=== PATIENT | female | born 1950 | race Two or more races ===

== ENCOUNTER 2024-01-12 07:03 | Day surgery (SDC) | payer OTHER ==
[~2024-01-12] VITALS: Ht 165.1 cm; Wt 81.6 kg
[~2024-01-12 07:03] MED LIST: DIALYVITE TABL1 EACH PO; GRALISE600 MG PO; NAMENDA10 MG PO; PLAVIX75 MG PO; PROBIOTIC250 MG PO
[2024-01-12] MEDS ORDERED: BUPIVACAINE HCL/PF 0.5% 30ML ML ONE (10:05)
[2024-01-12] MEDS ORDERED: HEMOSTATIC MATRIX 1 KIT KIT TOP ONE ×2 (10:05→11:00)
[2024-01-12] MEDS ORDERED: POVIDONE-IODINE 118 ML BOTT TOP ONE ×2 (10:05→11:00)
[2024-01-12] MEDS ORDERED: LIDOCAINE HCL/EPINEPHRINE 10MG/ML 1% 50ML IJ ONE (10:07)
[2024-01-12] MEDS ORDERED: DIBUCAINE 15 GM OINT..GM. TUBE ONE (10:07)
[2024-01-12] MEDS ORDERED: ERTAPENEM SODIUM 1,000 MG VIAL ONE (10:07)
[2024-01-12] MEDS ORDERED: LIDOCAINE HCL/EPINEPHRINE 50 ML VIAL IJ ONE (11:00)
[2024-01-12] MEDS ORDERED: BUPIVACAINE HCL 30 ML VIAL IJ ONE (11:00)
[2024-01-12] MEDS ORDERED: ERTAPENEM SODIUM 1,000 MG VIAL IV ONE (11:00)
[2024-01-12] MEDS ORDERED: DIBUCAINE 15 GM OINT..GM. TUBE RECTAL ONE (11:00)
[2024-01-12] MEDS ORDERED: TAMSULOSIN HCL 0.4 MG CAP PO ONE ×2 (11:30→12:58)
[2024-01-12] MEDS ORDERED: OXYC1TAB9 PO (11:35)
== END 2024-01-12 14:15 | disposition home or self-care (01) ==
LOC: CIR.AMB 07:03 → EDSTATUS 11:15 → SURH 11:15 → CIR.AMB 14:15
PROVIDERS: ATTEND Surgery
DX: D01.3 Carcinoma in situ of anus and anal canal (principal); K60.3 Anal fistula; K64.4 Residual hemorrhoidal skin tags; Z91.013 Allergy to seafood; Z88.6 Allergy status to analgesic agent

== ENCOUNTER 2024-06-28 06:50 | Day surgery (SDC) | payer OTHER ==
[~2024-06-28 06:50] MED LIST changes: +OXYC1TAB9 PO
[2024-06-28] MEDS ORDERED: DIPHENHYDRAMINE HCL 50 MG/ML VIAL 1ML IV ONE (09:30)
[2024-06-28] MEDS ORDERED: MIDAZOLAM HCL 2 MG/2 ML VIAL IV ONE (09:30)
[2024-06-28] MEDS ORDERED: fentaNYL CITRATE 50 MCG/ML AMPUL IV ONE (09:30)
== END 2024-06-28 11:10 | disposition home or self-care (01) ==
LOC: AMB-ENDOS 06:50 → CIR.AMB 13:45
PROVIDERS: ATTEND Surgery
DX: K57.30 Diverticulosis of large intestine without perforation or abscess without bleeding (principal); K62.82 Dysplasia of anus; K64.8 Other hemorrhoids; K60.3 Anal fistula; Z88.6 Allergy status to analgesic agent